=== PATIENT | female | born 1945 | race Caucasian/White ===

== ENCOUNTER → 2018-11-19 09:28 | Outpatient (CLI) | payer MEDICARE, OTHER, SELFPAY ==
--- NOTE | 2018-11-19 | DI.RAD.S_ITS ---
PROCEDURE: XR KNEE LT 3V INDICATIONS: LEFT LEG PAIN TECHNIQUE: 3 views of the knee were acquired. COMPARISON: [facility], , XR KNEE 2V LEFT, 02/22/2003, 9:01. FINDINGS: Bones: Stable postoperative changes from left total knee arthroplasty without evidence for hardware loosening or failure. Unchanged appearance of osseous lucency adjacent to the distal margin of the tibial hardware component. No acute fractures or dislocations. No suspicious bony lesions. Soft tissues: There is a small suprapatellar joint effusion. No suspicious soft tissue calcifications. IMPRESSION: 1. Stable postoperative changes from prior left total knee arthroplasty without evidence of hardware complication. 2. Small suprapatellar joint effusion. 3. No acute osseous abnormality seen. Dictated by: Truman Nguyen M.D. on 11/19/2018 at 10:12 Approved by: Truman Nguyen M.D. on 11/19/2018 at 10:14
--- NOTE | 2018-11-19 | DI.RAD.S_ITS ---
PROCEDURE: XR FOOT LT MIN 3V INDICATIONS: LEFT LEG PAIN TECHNIQUE: 3 views of the foot were acquired. COMPARISON: None. FINDINGS: Bones: No fractures or dislocations. Mild degenerative changes of the left first metatarsophalangeal joint. Prominent plantar calcaneal spur. Normal bone mineralization. No suspicious bony lesions. Soft tissues: Mild soft tissue swelling of the left forefoot. No underlying osseous erosions. No tibiotalar joint effusion. Achilles tendon appears normal. IMPRESSION: 1. Mild left forefoot soft tissue swelling without underlying fracture or osseous erosions. 2. No acute osseous abnormality seen in the left foot. 3. Prominent plantar calcaneal spur. 4. Mild degenerative changes of the left first metatarsophalangeal joint. If there are persistent symptoms or clinical suspicion for pathology, then repeat radiographs or advanced imaging (CT, MRI or bone scan) should be considered for further evaluation. Dictated by: Truman Nguyen M.D. on 11/19/2018 at 10:08 Approved by: Truman Nguyen M.D. on 11/19/2018 at 10:11
== END ==
PROVIDERS: PCP Family Medicine; Visit Provider Family Medicine
DX: M79.605 Pain in left leg (principal); M79.89 Other specified soft tissue disorders; M77.32 Calcaneal spur, left foot; M19.072 Primary osteoarthritis, left ankle and foot; M25.462 Effusion, left knee; Z96.652 Presence of left artificial knee joint
CPT/HCPCS: 73562; 73630

== ENCOUNTER → 2018-12-27 10:16 | Outpatient (CLI) | payer MEDICARE, OTHER, SELFPAY ==
--- NOTE | 2018-12-27 | DI.US.S_ITS ---
PROCEDURE: US ABDOMEN COMPLETE INDICATIONS: ABNORMAL LFTS TECHNIQUE: Real-time scanning was performed of the abdominal and retroperitoneal organs, with image documentation. COMPARISON: None. FINDINGS: Liver: Liver is diffusely increased in echogenicity. No focal hepatic abnormalities identified. Normal hepatic size. Gallbladder: Surgically absent. Biliary ducts: Intrahepatic bile ducts are non-dilated. Extrahepatic bile duct caliber measures 4.9 mm. Normal is 6-7 mm or less in diameter, or 10 mm or less post-cholecystectomy. Pancreas: Visualized portions of the pancreas are sonographically normal. Spleen: Spleen is normal in size and homogeneous in echotexture. Kidneys: Kidneys are normal in size and echotexture. Right kidney measures 10.9 cm long; left kidney measures 11.1 cm long. No hydronephrosis or nephrolithiasis. No solid masses. Aorta: Visualized aorta is normal in caliber at less than 3 cm. Iliacs: Proximal common iliac arteries are normal in caliber at less than 2.5 cm. IVC: Intrahepatic inferior vena cava is patent. Miscellaneous: No free abdominal fluid. IMPRESSION: 1. Increased hepatic echogenicity noted possibly related to hepatic steatosis but other sources of hepatocellular disease cannot be excluded. Recommend clinical correlation. Dictated by: Kwabena NAJERA Interpreted: Ana Rosa Andino MD on 12/27/2018 at 12:09 Approved by: Ana Rosa Andino M.D. on 12/27/2018 at 14:39
== END ==
PROVIDERS: PCP Family Medicine; Visit Provider Family Medicine
DX: R79.89 Other specified abnormal findings of blood chemistry (principal); E80.7 Disorder of bilirubin metabolism, unspecified; Z90.49 Acquired absence of other specified parts of digestive tract
CPT/HCPCS: 76700

== ENCOUNTER → 2019-02-03 14:14 | Outpatient (CLI) | payer MEDICARE, OTHER, SELFPAY ==
--- NOTE | 2019-02-03 | DI.RAD.S_ITS ---
PROCEDURE: XR LUMBAR SPINE 2-3V INDICATIONS: HIP AND BACK PAIN TECHNIQUE: 3 views of the lumbar spine were acquired. COMPARISON: [facility], , L-SPINE WITHOUT CONTRAST, 06/23/2017, 13:48. FINDINGS: Bones: 5 [id number]-[id number]-[id number] vertebrae are present. There is normal bony alignment. No vertebral body compression fractures. No suspicious bony lesions. There is moderate to severe disc space narrowing at L2-3, L4-5 and L5-S1. Moderate foraminal narrowing is present at L5-S1. Soft tissues: Overlying bowel gas pattern is normal. No suspicious soft tissue calcifications. Stimulator is noted overlying the right lower pelvis. Cholecystectomy clips are present. IMPRESSION: Degenerative changes most prominent at L5-S1. Dictated by: Ana Rosa Andino M.D. on 02/03/2019 at 17:19 Approved by: Ana Rosa Andino M.D. on 02/03/2019 at 17:20
--- NOTE | 2019-02-03 | DI.RAD.S_ITS ---
PROCEDURE: XR HIP W PEL IF DONE LT MIN 4V INDICATIONS: HIP AND BACK PAIN TECHNIQUE: AP pelvis with lateral view(s) of the left hip(s). COMPARISON: [facility], ADDY, XR LUMBAR SPINE 2-3V, 02/03/2019, 14:23. [facility], ADDY, HIP 2V LEFT, 08/03/2014, 11:54. FINDINGS: Bones: No fractures or dislocations. Pelvic ring appears intact. No suspicious bony lesions. There is moderate bilateral degenerative hip joint space narrowing. Normal periarticular osteophytes are present. Soft tissues: The visualized bowel gas pattern is normal. No suspicious soft tissue calcifications. Stimulator is noted overlying the right lower pelvis. IMPRESSION: Osteoarthritic changes within the hips bilaterally. Dictated by: Ana Rosa Andino M.D. on 02/03/2019 at 17:20 Approved by: Ana Rosa Andino M.D. on 02/03/2019 at 17:21
== END ==
PROVIDERS: PCP Family Medicine; Visit Provider Family Medicine
DX: M54.9 Dorsalgia, unspecified (principal); M47.817 Spondylosis without myelopathy or radiculopathy, lumbosacral region; M48.061 Spinal stenosis, lumbar region without neurogenic claudication; M48.07 Spinal stenosis, lumbosacral region; M25.551 Pain in right hip; M16.0 Bilateral primary osteoarthritis of hip; M54.30 Sciatica, unspecified side; Z90.49 Acquired absence of other specified parts of digestive tract
CPT/HCPCS: 72100; 73522

== ENCOUNTER → 2020-01-31 12:30 | Outpatient (CLI) | payer MEDICARE, OTHER, SELFPAY ==
--- NOTE | 2020-01-31 | DI.CT.S_ITS ---
PROCEDURE: CT HEAD/BRAIN WO CON INDICATIONS: Other subjective visual disturbances TECHNIQUE: Noncontrast 4.5 mm thick angled axial sections acquired from the foramen magnum to the vertex, with coronal and sagittal reformats. For radiation dose reduction, the following was used: automated exposure control, adjustment of mA and/or kV according to patient size. COMPARISON: None. FINDINGS: Image quality: Excellent. CSF spaces: Basal cisterns are patent. No extra-axial fluid collections. The ventricles are symmetric in size and shape. Brain: No intracranial bleeds or masses. There is cerebral volume loss for age, with resultant ventricular and sulcal prominence. There are periventricular and deep white matter chronic small vessel ischemic changes. There is intracranial internal carotid artery atherosclerosis. Skull and face: Calvarium and visualized facial bones appear intact, without suspicious lesions. Sinuses: Visualized sinuses and mastoids are clear. IMPRESSION: Unremarkable intracranial study for age, without an imaging explanation found for the patient's presenting history. Dictated by: Varinder Poole M.D. on 01/31/2020 at 12:10 Approved by: Varinder Poole M.D. on 01/31/2020 at 12:10
== END ==
PROVIDERS: PCP Family Medicine; Referring Provider Family Medicine; Visit Provider Family Medicine
DX: H53.19 Other subjective visual disturbances (principal)
CPT/HCPCS: 70450

== ENCOUNTER → 2021-01-29 11:59 | Outpatient (CLI) | payer MEDICARE, OTHER, SELFPAY ==
--- NOTE | 2021-01-29 | DI.US.S_ITS ---
PROCEDURE: US PERIPH VENOUS LOW EXTREM RT INDICATIONS: PAIN IN LEG TECHNIQUE: Real-time imaging, as well as color and pulse Doppler interrogation, were performed of the lower extremity deep veins from the inguinal ligament to the popliteal fossa. COMPARISON: [facility], , PVE UNILATERAL LEFT, 08/03/2014, 13:13. FINDINGS: The common femoral, femoral and popliteal veins are normally compressible, and free of intraluminal thrombus. Color and pulse Doppler demonstrate normal phasic intraluminal flow. There is normal augmentation response to distal compression maneuver. IMPRESSION: Negative for deep venous thrombosis. Dictated by: Varinder Poole M.D. on 01/29/2021 at 12:12 Approved by: Varinder Poole M.D. on 01/29/2021 at 12:13
== END ==
PROVIDERS: PCP Family Medicine; Referring Provider Family Medicine; Visit Provider Family Medicine
DX: M79.606 Pain in leg, unspecified (principal)
CPT/HCPCS: 93971

== ENCOUNTER → 2021-06-22 12:59 | Outpatient (CLI) | payer MEDICARE, OTHER, SELFPAY ==
--- NOTE | 2021-06-22 | DI.MG.S_ITS ---
BILATERAL DIGITAL SCREENING MAMMOGRAM 3D/2D WITH CAD: 06/22/2021 CLINICAL: Routine screening. Family history of breast cancer. Comparison is made to exams dated: 12/01/2013 mammogram, 12/02/2012 mammogram, and 12/04/2011 mammogram - [facility]. The tissue of both breasts is predominantly fatty. Current study was also evaluated with a Computer Aided Detection (CAD) system. No significant masses, calcifications, or other findings are seen in either breast. There has been no significant interval change. IMPRESSION: NEGATIVE There is no mammographic evidence of malignancy. A 1 year screening mammogram is recommended. This exam was interpreted at Station ID: [id number]. NOTE: For mammograms, a report in lay terms will be sent to the patient. Approximately 15% of breast malignancies will not be visualized mammographically. In the management of a palpable breast mass, a negative mammogram must not discourage biopsy of a clinically suspicious lesion. Electronically Signed By: Mitch Klein M.D., jr/shazia:06/24/2021 14:39:22 letter sent: Normal Exam ACR BI-RADS Category 1: Negative 3341F
== END ==
PROVIDERS: PCP Family Medicine; Referring Provider Family Medicine; Visit Provider Family Medicine
DX: Z12.31 Encounter for screening mammogram for malignant neoplasm of breast (principal); Z80.3 Family history of malignant neoplasm of breast
CPT/HCPCS: 77063; 77067

== ENCOUNTER → 2021-11-20 10:10 | Outpatient (CLI) | payer MEDICARE, OTHER, SELFPAY ==
--- NOTE | 2021-11-20 10:15 | DI.RAD.S_ITS ---
PROCEDURE: XR LUMBAR SPINE 2-3V INDICATIONS: MID LOW BACK PAIN TECHNIQUE: 3 views of the lumbar spine were acquired. COMPARISON: [facility], CR, XR LUMBAR SPINE 2-3V, 02/03/2019, 14:23. FINDINGS: Bones: 5 mqk-xye-bjilqqo vertebrae are present. There is normal bony alignment. No vertebral body compression fractures. No suspicious bony lesions. Moderate to severe disc space narrowing at L2-L3, L4-L5, and L5-S1. Bony foraminal narrowing present at L5-S1. Soft tissues: Overlying bowel gas pattern is normal. No suspicious soft tissue calcifications. Right upper quadrant metal clips redemonstrated. Stimulator device projects over the right pelvis. IMPRESSION: 1. No acute lumbar spine fracture visualized radiographically. 2. Multilevel degenerative changes of the lumbar spine. Dictated by: Natanael Cruz M.D. on 11/20/2021 at 20:27 Approved by: Natanael Cruz M.D. on 11/20/2021 at 20:34
--- NOTE | 2021-11-20 10:15 | DI.RAD.S_ITS ---
PROCEDURE: XR HIP W PEL IF DONE BILAT 2V INDICATIONS: MID LOW BACK PAIN TECHNIQUE: AP pelvis with lateral view(s) of both hip(s). COMPARISON: [facility], ADDY, XR HIP W PEL IF DONE HARSHAL 3TO4V, 02/03/2019, 14:23. [facility], , HIP 2V LEFT, 08/03/2014, 11:54. FINDINGS: Bones: No fractures or dislocations. Pelvic ring appears intact. Similar mild-moderate bilateral joint space narrowing of the hips. Soft tissues: The visualized bowel gas pattern is normal. No suspicious soft tissue calcifications. Generator pack projects over the right pelvis. IMPRESSION: Similar bilateral hip degenerative changes. Dictated by: Natanael Cruz M.D. on 11/20/2021 at 20:34 Approved by: Natanael Cruz M.D. on 11/20/2021 at 20:39
== END ==
PROVIDERS: PCP Family Medicine; Referring Provider Family Medicine; Visit Provider Family Medicine
DX: M47.816 Spondylosis without myelopathy or radiculopathy, lumbar region (principal); M25.551 Pain in right hip; M25.552 Pain in left hip; M54.50 Low back pain, unspecified
CPT/HCPCS: 72100; 73521

== ENCOUNTER → 2022-08-07 10:21 | Outpatient (CLI) | payer MEDICARE, OTHER, SELFPAY ==
--- NOTE | 2022-08-07 | DI.RAD.S_ITS ---
PROCEDURE: XR SINUS <3V INDICATIONS: SINUS PAIN TECHNIQUE: 3 views of the sinuses were acquired. COMPARISON: [facility], CT, CT HEAD/BRAIN WO CON, 01/31/2020, 12:45. FINDINGS: Sinuses: The visualized sinuses demonstrate no air-fluid levels or mucosal thickening. The visualized mastoids also appear clear. Bones: No suspicious bony lesions. Nasal septum is midline. IMPRESSION: Clear paranasal sinuses. If clinical symptoms persist or clinical suspicion for sinusitis is high, sinus CT is suggested for further evaluation. Dictated by: Jamaal Hahn M.D. on 08/07/2022 at 13:27 Approved by: Jamaal Hahn M.D. on 08/07/2022 at 13:28
--- NOTE | 2022-08-07 | DI.MG.S_ITS ---
BILATERAL DIGITAL SCREENING MAMMOGRAM 3D/2D WITH CAD: 08/07/2022 CLINICAL: Routine screening. Family history of breast cancer. Comparison is made to exams dated: 06/22/2021 mammogram - [facility] and 12/01/2013 mammogram - [facility]. There are scattered areas of fibroglandular density in both breasts (category b / 25%-50% glandular tissue). Current study was also evaluated with a Computer Aided Detection (CAD) system. No significant masses, calcifications, or other findings are seen in either breast. There has been no significant interval change. IMPRESSION: NEGATIVE There is no mammographic evidence of malignancy. A 1 year screening mammogram is recommended. Based on the Tyrer Cuzick model (a risk assessment model) the patient's lifetime risk is 4.8% and her 10 year risk is 0.0%. According to the ACR, ACS, and NCCN guidelines, an annual breast MRI exam along with mammogram is recommended if the patient's lifetime risk is 20% or greater. This exam was interpreted at Station ID: [id number]. NOTE: For mammograms, a report in lay terms will be sent to the patient. Approximately 15% of breast malignancies will not be visualized mammographically. In the management of a palpable breast mass, a negative mammogram must not discourage biopsy of a clinically suspicious lesion. Electronically Signed By: Natanael dempsey/shazia:08/07/2022 11:06:22 letter sent: Normal Exam ACR BI-RADS Category 1: Negative 3341F
== END ==
PROVIDERS: PCP Family Medicine; Referring Provider Family Medicine; Visit Provider Family Medicine
DX: Z12.31 Encounter for screening mammogram for malignant neoplasm of breast (principal); Z80.3 Family history of malignant neoplasm of breast; J01.90 Acute sinusitis, unspecified; J34.89 Other specified disorders of nose and nasal sinuses
CPT/HCPCS: 70210; 77063; 77067

== ENCOUNTER → 2022-10-08 10:43 | Outpatient (CLI) | payer MEDICARE, OTHER, SELFPAY ==
--- NOTE | 2022-10-08 10:45 | DI.RAD.S_ITS ---
PROCEDURE: XR LUMBAR SPINE 2-3V INDICATIONS: low back and left hip pain TECHNIQUE: 3 views of the lumbar spine were acquired. COMPARISON: MR, MR THORACIC SPINE WO CON, 08/10/2015, 18:34. MR, L-SPINE WITHOUT CONTRAST, 06/23/2017, 13:48. [facility], CR, XR LUMBAR SPINE 2-3V, 02/03/2019, 14:23. [facility], CR, XR LUMBAR SPINE 2-3V, 11/20/2021, 10:59. FINDINGS: Bones: 6 mpg-ngt-ucnjhub vertebrae are present. Assuming the 1st vnu-xli-yfwmdaz lumbar vertebra his L1, there is a transitional S1 which is lumbar lies. There is normal bony alignment. No vertebral body compression fractures. No suspicious bony lesions. Degenerative disc disease is present, moderate at L3-L4 and L4-L5, mild at other levels. Moderate facet arthropathy at L4-L5 and L5-S1. Soft tissues: Overlying bowel gas pattern is normal. No suspicious soft tissue calcifications. There is a nerve stimulator. IMPRESSION: 1. Transitional anatomy. The report is based on the assumption that the 1st non rib-bearing lumbar vertebra is L1. There is lumbarization of S1. Please confirm vertebral levels prior to any interventional procedures or surgery. 2. Degenerative disc and facet disease in lumbar spine. Dictated by: Jamaal Hahn M.D. on 10/08/2022 at 14:03 Approved by: Jamaal Hahn M.D. on 10/08/2022 at 14:09
--- NOTE | 2022-10-08 10:45 | DI.RAD.S_ITS ---
PROCEDURE: XR HIP W PEL IF DONE LT 2V INDICATIONS: low back and left hip pain TECHNIQUE: AP pelvis with lateral view(s) of the left hip(s). COMPARISON: [facility], , HIP 2V LEFT, 08/03/2014, 11:54. FINDINGS: Bones: No fractures or dislocations. Pelvic ring appears intact. No suspicious bony lesions. Mild osteoarthritic changes in hips and sacroiliac joints bilaterally. Soft tissues: The visualized bowel gas pattern is normal. No suspicious soft tissue calcifications. Note is made of a nerve stimulator with the lead projecting to the right sacrum. IMPRESSION: 1. Mild osteoarthritic changes. Dictated by: Jamaal Hahn M.D. on 10/08/2022 at 13:56 Approved by: Jamaal Hahn M.D. on 10/08/2022 at 13:57
== END ==
PROVIDERS: PCP Family Medicine; Referring Provider Family Medicine; Visit Provider Family Medicine
DX: M19.90 Unspecified osteoarthritis, unspecified site (principal)
CPT/HCPCS: 72100; 73502

== ENCOUNTER → 2023-08-17 10:52 | Outpatient (CLI) | payer MEDICARE, OTHER, SELFPAY ==
--- NOTE | 2023-08-17 10:56 | DI.MG.S_ITS ---
BILATERAL DIGITAL SCREENING MAMMOGRAM 3D/2D WITH CAD: 08/17/2023 CLINICAL: Routine screening. Family history of breast cancer. Comparison is made to exams dated: 08/07/2022 mammogram, 06/22/2021 mammogram - [facility], and 12/04/2011 mammogram - [facility]. There are scattered areas of fibroglandular density in both breasts (category b / 25%-50% glandular tissue). Current study was also evaluated with a Computer Aided Detection (CAD) system. There are benign calcifications in both breasts. There also are benign vascular calcifications in both breasts. No significant masses, calcifications, or other findings are seen in either breast. There has been no significant interval change. IMPRESSION: BENIGN There is no mammographic evidence of malignancy. A 1 year screening mammogram is recommended. Based on the Tyrer Cuzick model (a risk assessment model) the patient's lifetime risk is 4.4% and her 10 year risk is 0.0%. According to the ACR, ACS, and NCCN guidelines, an annual breast MRI exam along with mammogram is recommended if the patient's lifetime risk is 20% or greater. This exam was interpreted at Station ID: [id number]. NOTE: For mammograms, a report in lay terms will be sent to the patient. Approximately 15% of breast malignancies will not be visualized mammographically. In the management of a palpable breast mass, a negative mammogram must not discourage biopsy of a clinically suspicious lesion. Electronically Signed By: Natanael dempsey/shazia:08/17/2023 15:58:23 letter sent: Normal Exam ACR BI-RADS Category 2: Benign Finding(s) 3342F
--- NOTE | 2023-08-17 10:57 | DI.RAD.S_ITS ---
PROCEDURE: XR SINUS MIN 3V INDICATIONS: ACUTE SINUSITIS TECHNIQUE: Three views of the sinuses were acquired. COMPARISON: [facility], , XR SINUS <3V, 08/07/2022, 10:22. FINDINGS: Sinuses: The visualized sinuses demonstrate no air-fluid levels or mucosal thickening. The visualized mastoids also appear clear. Bones: No suspicious bony lesions. Nasal septum is midline. IMPRESSION: No air-fluid levels to suggest acute sinusitis. Dictated by: Alyssa Bullock M.D. on 08/17/2023 at 16:10 Approved by: Alyssa Bullock M.D. on 08/17/2023 at 16:10
== END ==
PROVIDERS: PCP Family Medicine; Referring Provider Family Medicine; Visit Provider Family Medicine
DX: Z12.31 Encounter for screening mammogram for malignant neoplasm of breast (principal); Z80.3 Family history of malignant neoplasm of breast; R92.323 Mammographic fibroglandular density, bilateral breasts; J01.90 Acute sinusitis, unspecified
CPT/HCPCS: 70220; 77063; 77067

== ENCOUNTER 2023-12-21 12:54 | Day surgery (SDC) | payer MEDICARE, OTHER, SELFPAY ==
--- NOTE | 2023-12-21 | PATH_ITS ---
[facility] Accession Number: [id number] No. of containers..03 Tissue . 01 Material submitted: . PART A: colon - DESCENDING COLON POLYP PART B: colon - CECAL POLYPS PART C: colon - SIGMOID COLON POLYP . 01 Diagnosis: A. DESCENDING COLON POLYP, POLYPECTOMY: Tubular adenoma. . B. CECAL POLYPS, BIOPSY: Tubular adenoma(s). . C. SIGMOID COLON POLYP, POLYPECTOMY: Tubular adenoma. MRV 12/22/2023 1519 Local . 01 Electronically signed: . Ernestina Singh MD, Pathologist NPI- [id number] . 01 Gross description: . Part A: DESCENDING COLON POLYP: Received in formalin is 1 fragment(s) of johnson, soft tissue measuring 0.4 x 0.4 x 0.3 cm submitted entirely in 1 cassette(s) Part B: CECAL POLYPS: Received in formalin are 3 fragment(s) of johnson, soft tissue measuring 0.2 x 0.2 x 0.2 cm to 0.6 x 0.5 x 0.4 cm submitted entirely in 1 cassette(s) Part C: SIGMOID COLON POLYP: Received in formalin is 1 fragment(s) of johnson, soft tissue measuring 0.5 x 0.4 x 0.4 cm submitted entirely in 1 cassette(s) /TEJINDER 12/22/2023 0143 Local . 01 Pathologist provided ICD-10: D12.6 . 01 CPT . 849614, 972846, 944109 Specimen Comment: A courtesy copy of this report has been sent to [phone] Performed at: [address] [facility], [place], [place] [id number] MD Bryce Hayes MD Phone: [phone]
[2023-12-21 13:59] VITALS: BP 139/78; PULSE 90; RESP 16; TEMP 36.2; O2SAT 98
[2023-12-21] MEDS: LACTATED RINGERS 1,000 ML 42 ML IV (14:08)
--- NOTE | 2023-12-21 14:44 | P.HP_ITS ---
History of Present Illness History of Present Illness Date Patient Seen: 12/21/23 Time Patient Seen: 14:44 Chief complaint: Colonoscopy Narrative: 78-year-old reporting a history of colon polyps. She states she is overdue for the recommended follow-up which was 3 years post procedure. She believes her last colonoscopy was somewhere in the 5-10 years ago range. She has a family history of colon cancer in both parents. [facility] Medical History High cholesterol FH: total knee replacement Surgical History H/O: hysterectomy Family History Father Colon cancer Mother Colon cancer Social History Smoking Status: Never smoker alcohol intake: never Meds Home Medications and Allergies Home Medications Medication Instructions Recorded Confirmed Type atorvastatin 20 mg tablet 20 mg PO DAILY 12/21/23 12/21/23 History cevimeline 30 mg capsule 1 cap PO 3XD 12/21/23 12/21/23 History estradiol 0.01% (0.1 mg/gram) vaginal 12/21/23 History vaginal cream metoprolol succinate 25 mg 25 mg PO DAILY 12/21/23 12/21/23 History tablet,extended release 24 hr pantoprazole 40 mg tablet,delayed 40 mg PO BID 12/21/23 12/21/23 History release tramadol 50 mg tablet 50 mg PO Q4-6H 12/21/23 12/21/23 History Allergies Allergy/AdvReac Type Severity Reaction Status Date / Time INGREDIENT: NKDA - NO KNOWN Allergy Unknown Uncoded 12/21/23 13:53 DRUG ALLERGIES Review of Systems Review of Systems ROS: Yes All systems reviewed with the patient and are negative except as otherwise documented Exam Vital Signs (past 8 hours): - 12/21/23 13:59 Temperature 97.2 F L Pulse Rate 90 Respiratory Rate 16 Blood Pressure 139/78 Pulse Oximetry 98 Oxygen Delivery Method Room Air Oxygen Delivery Method Room Air Const General: cooperative HENMT Head: normal to inspection Eyes General: appearance normal, both eyes and all related structures Neck Neck: normal visual inspection Chest Chest: normal inspection of the chest Resp Effort & Inspection: normal respiratory effort Cardio Rate: regular rate GI Inspection: normal to inspection Skin General: no rashes or lesions noted Neuro General: patient alert and patient awake Extrem General: normal to inspection and no pedal edema Psych Appearance: grossly normal Assessment & Plan Assessment & Plan narrative: 78-year-old with a family history of colon cancer and a personal history of colon polyps. Colonoscopy is pursued today. Time-Based Coding :: [TOTAL MINUTES] spent with patient and on the chart (including review of chart, obtaining history, exam, reviewing outside data, placing orders, documenting exam and treatment plan, and counseling patient) on [DATE].
--- NOTE | 2023-12-21 14:45 | PM.PREOP ---
Pre-operative Note Interval Note History & Physical reviewed/Exam performed by Physician: Yes Changes to H&P: No ASA Class (for procedural sedation): II
--- NOTE | 2023-12-21 16:31 | PM.OP.COLON ---
Operative Date/Time/Diagnoses Date of procedure: 12/21/23 Time of procedure: 16:32 Pre-op diagnosis: Family history of colon cancer and a personal history of colon polyps. Post-op diagnosis: same Procedure & Clinicians Study performed: Colonoscopy with hot snare polypectomies Same procedure as scheduled: Yes Indications: Family history of colon cancer and a personal history of colon polyps. Surgeon: Eulalio Young Procedure Notes SCOAP/Timeout: Done Procedure in detail: After the risks and benefits were explained, written and verbal informed consent was obtained. The patient was brought into the procedure room and placed into the left lateral decubitus position. Conscious sedation medication was applied as per nursing documentation. Digital rectal examination was accomplished. The scope was introduced into the patient and advanced under direct visualization to the cecum as identified by the appendiceal orifice and ileocecal valve. The scope was slowly withdrawn to carefully examine the mucosa for any defects or lesions. Comprehensive imaging was accomplished throughout the rectum including the dentate line. The colon was decompressed, the scope was then removed from the patient who tolerated the procedure well. Pediatric colonoscope Bowel prep adequate Scope withdrawal time: 15 minutes Sedation minutes: 23 Complications: none Impression: Patient had diverticulosis in the right and left colon. Grade 3 internal hemorrhoids were noted. The sigmoid was rather tortuous. In the sigmoid there was an approximately 5-6 mm semi pedunculated polyp removed with hot snare. In the proximal descending colon there was a sessile 5-6 mm polyp removed with hot snare. In the cecum there was a 5 mm polyp removed with hot snare and then in the appendiceal orifice region there was a pedunculated 6 mm polyp removed with hot snare. Endoscopic diagnosis 1. Multiple colon polyps 2. Diverticulosis 3. Grade 3 hemorrhoids Post-procedure Plan for aftercare: 1. Await histology 2. Repeat colonoscopy 3 years Disposition: PACU
[2023-12-21 16:33] VITALS: BP 111/65; PULSE 73; RESP 12; TEMP 36.2; O2SAT 97
[2023-12-21 16:38] VITALS: BP 113/59; PULSE 67; RESP 14; O2SAT 98
[2023-12-21 16:45] VITALS: BP 118/59; PULSE 73; RESP 12; O2SAT 98
[2023-12-21 16:50] VITALS: BP 130/66; PULSE 67; RESP 15; O2SAT 100
== END 2023-12-21 17:05 | disposition home or self-care (01) ==
PROVIDERS: PCP Family Medicine; Referring Provider Internal Medicine Gastroenterology; Visit Provider Internal Medicine Gastroenterology
PROC: 0DJD8ZZ Inspection of Lower Intestinal Tract, Via Natural or Artificial Opening Endoscopic (ICD-10-PCS; CPT 45378; principal; 2023-12-21 14:30)
DX: Z12.11 Encounter for screening for malignant neoplasm of colon (principal); Z80.0 Family history of malignant neoplasm of digestive organs; Z86.010 Personal history of colon polyps; K57.20 Diverticulitis of large intestine with perforation and abscess without bleeding; K64.2 Third degree hemorrhoids; D12.4 Benign neoplasm of descending colon; D12.0 Benign neoplasm of cecum; D12.5 Benign neoplasm of sigmoid colon
CPT/HCPCS: 45385; J2704

== ENCOUNTER → 2024-02-17 11:42 | Outpatient (CLI) | payer MEDICARE, OTHER, SELFPAY ==
--- NOTE | 2024-02-17 11:44 | DI.RAD.S_ITS ---
PROCEDURE: XR FOOT RT MIN 3V INDICATIONS: Pain in right ankle and joints of right foot TECHNIQUE: 3 views of the foot were acquired. COMPARISON: [facility], CR, XR FOOT LT MIN 3V, 11/19/2018, 9:38. FINDINGS: Bones: No fractures or dislocations. No suspicious bony lesions. Scattered IP and midfoot degenerative changes. Calcaneal spur is present. Soft tissues: No tibiotalar joint effusion. Achilles tendon appears normal. IMPRESSION: IP and midfoot arthritic changes. Dictated by: Ana Rosa Andino M.D. on 02/18/2024 at 15:55 Approved by: Ana Rosa Andino M.D. on 02/18/2024 at 15:57
== END ==
PROVIDERS: PCP Family Medicine; Referring Provider Family Medicine; Visit Provider Family Medicine
DX: M25.571 Pain in right ankle and joints of right foot (principal)
CPT/HCPCS: 73630

== ENCOUNTER → 2024-05-30 11:24 | Outpatient (CLI) | payer MEDICARE, OTHER, SELFPAY ==
--- NOTE | 2024-05-30 11:26 | DI.RAD.S_ITS ---
PROCEDURE: XR CERVICAL SPINE 2V OR 3V INDICATIONS: Cervicalgia TECHNIQUE: Three views (s) of the cervical spine were acquired. COMPARISON: None. FINDINGS: Cervical spine curvature and alignment: Normal. Bones: There are no osseous abnormalities. Disc spaces: Mild C4-5 C5-6 and moderate C6-7 degenerative disc disease noted. There is mild C3-4 through C7-T1 degenerative facet disease. Soft tissues: No soft tissue swelling, calcification or mass. IMPRESSION: Degeneration Dictated by: Saji Hines M.D. on 05/31/2024 at 9:11 Approved by: Saji Hines M.D. on 05/31/2024 at 9:12
== END ==
PROVIDERS: PCP Family Medicine; Referring Provider Family Medicine; Visit Provider Family Medicine
DX: M50.321 Other cervical disc degeneration at C4-C5 level (principal); M47.812 Spondylosis without myelopathy or radiculopathy, cervical region
CPT/HCPCS: 72040

== ENCOUNTER → 2024-07-08 10:38 | Outpatient (CLI) | payer MEDICARE, OTHER, SELFPAY ==
--- NOTE | 2024-07-08 10:40 | DI.CT.S_ITS ---
PROCEDURE: CT CERVICAL SPINE WO CON INDICATIONS: Cervicalgia TECHNIQUE: Noncontrast 3 mm thick sections acquired from the skull base to the T4 level. Sagittal and coronal reformats were then constructed. For radiation dose reduction, the following was used: automated exposure control, adjustment of mA and/or kV according to patient size. COMPARISON: [facility], CT, CT THORACIC SPINE WO CON, 07/08/2024, 10:45. [facility], CR, XR CERVICAL SPINE 2V OR 3V, 05/30/2024, 11:35. [facility], MR, MR CERVICAL SPINE WO CON, 08/10/2015, 18:34. FINDINGS: Image quality: Excellent. Bones: No fractures or dislocations. Visualized superior ribs are intact. Focal degenerative change is seen involving the C1-C2 interface anteriorly. There is mild disc space narrowing seen at C5-C6, with moderate disc space narrowing at C6-C7. Several levels of mild facet hypertrophy can be seen. Milder degenerative changes are seen elsewhere. Soft tissues: Prevertebral soft tissues are normal in thickness. No paravertebral hematomas. No apical pneumothoraces. IMPRESSION: Focal lower cervical spine degenerative change can be seen. Dictated by: Varinder Poole M.D. on 07/08/2024 at 21:25 Approved by: Varinder Poole M.D. on 07/08/2024 at 21:26
--- NOTE | 2024-07-08 10:40 | DI.CT.S_ITS ---
PROCEDURE: CT THORACIC SPINE WO CON INDICATIONS: Cervicalgia TECHNIQUE: Noncontrast 3 mm thick sections acquired through the region of interest in the thoracic spine. Sagittal and coronal reformats were then constructed. For radiation dose reduction, the following was used: automated exposure control. COMPARISON: [facility], CT, CT CERVICAL SPINE WO CON, 07/08/2024, 10:45. [facility], MR, MR THORACIC SPINE WO CON, 08/10/2015, 18:34. FINDINGS: Image quality: Excellent. Bones: No acute vertebral body compression fractures. No suspicious sclerotic or lytic bony lesions. Central spinal canal is of normal overall caliber. There is 12? dextroconvex thoracic scoliosis. Accentuated thoracic kyphosis is seen. No focal AP alignment abnormality is seen. Generalized degenerative changes are seen, with multiple levels of [id number] disc space narrowing, with associated endplate irregularity. There is a mild degree of central canal narrowing seen inferiorly. At T12-L1, there is again seen a mild central/left disc osteophyte protrusion. Several levels of mild neural foraminal narrowing can be seen within the lower thoracic spine. Milder degenerative changes are seen elsewhere. Soft tissues: No paravertebral masses or hematomas. Visualized posteromedial lungs appear clear. Cholecystectomy clips are seen. IMPRESSION: Dextroconvex scoliosis. Mild degenerative changes are seen, which are worst inferiorly. Accentuated thoracic kyphosis is seen. Additional findings: Cholecystectomy Dictated by: Varinder Poole M.D. on 07/08/2024 at 21:21 Approved by: Varinder Poole M.D. on 07/08/2024 at 21:24 No focal AP alignment abnormality is seen.
== END ==
PROVIDERS: PCP Family Medicine; Referring Provider Family Medicine; Visit Provider Family Medicine
DX: M47.812 Spondylosis without myelopathy or radiculopathy, cervical region (principal); M47.814 Spondylosis without myelopathy or radiculopathy, thoracic region; M40.204 Unspecified kyphosis, thoracic region; M54.2 Cervicalgia
CPT/HCPCS: 72125; 72128

== ENCOUNTER → 2024-09-26 14:01 | Outpatient (CLI) | payer MEDICARE, OTHER, SELFPAY ==
--- NOTE | 2024-09-26 14:03 | DI.MG.S_ITS ---
MM screening mammo BI: 09/26/2024. BI-RADS: 2 CLINICAL: 79-year old female for bilateral screening mammogram. Tyrer-Cuzick lifetime risk of 1.4%. No personal or first-degree family history of breast cancer. History of ovarian cancer in one first-degree relative. PRIOR EXAMS 08/17/2023, 08/07/2022, 06/22/2021. MAMMOGRAPHY TECHNIQUE: 2D and 3D (tomosynthesis) digital mammographic views obtained, with additional images as needed for full coverage. Current study was also evaluated with a Computer Aided Detection (CAD) system. DENSITY B. There are scattered areas of fibroglandular density. MAMMOGRAPHY FINDINGS Right: Typically-benign vascular calcifications noted. Left: Benign-appearing calcification noted on the left. Typically-benign vascular calcifications also noted. IMPRESSION: * No evidence of malignancy with benign findings. RECOMMENDATIONS Bilateral * Annual screening mammography. OVERALL ASSESSMENT CATEGORY BI-RADS-2: Benign. [employer] recommends annual screening mammography beginning at age 40 for women with average risk of breast cancer. ELECTRONICALLY SIGNED: Aakash Alexis M.D. on 09/26/2024 at 03:55:57 PM PT Interpreting Station ID: [id number]
== END ==
PROVIDERS: PCP Family Medicine; Referring Provider Family Medicine; Visit Provider Family Medicine
DX: Z12.31 Encounter for screening mammogram for malignant neoplasm of breast (principal); Z80.41 Family history of malignant neoplasm of ovary; R92.1 Mammographic calcification found on diagnostic imaging of breast
CPT/HCPCS: 77063; 77067

== ENCOUNTER → 2025-01-19 12:13 | Outpatient (CLI) | payer MEDICARE, OTHER, SELFPAY | PROVIDERS: Family Provider Family Medicine; PCP Family Medicine; Referring Provider Physical Medicine & Rehabilitation; Visit Provider Physical Medicine & Rehabilitation | DX: R20.0 Anesthesia of skin (principal); M79.601 Pain in right arm; M79.602 Pain in left arm | CPT/HCPCS: 95885; 95886; 95910 ==